=== PATIENT | female | born 1975 | race Caucasian/White ===

== ENCOUNTER 2018-04-05 08:15 | Outpatient (RCR) | payer OTHER | END 2018-05-31 | disposition home or self-care (01) | LOC: MKS.ESL.PT | DX: M25.562 Pain in left knee (principal); M25.511 Pain in right shoulder | CPT/HCPCS: G0283-GP ==

== ENCOUNTER → 2018-07-12 | Outpatient (CLI) | payer BC | LOC: MC.RAD 08:54 | DX: Z12.31 Encounter for screening mammogram for malignant neoplasm of breast (principal) ==

== ENCOUNTER → 2018-11-17 | Outpatient (CLI) | payer BC | LOC: COL.RAD 13:47 | DX: G43.009 Migraine without aura, not intractable, without status migrainosus (principal); R68.89 Other general symptoms and signs; H47.10 Unspecified papilledema; D64.9 Anemia, unspecified | CPT/HCPCS: A9585 ==

== ENCOUNTER → 2018-12-16 | Outpatient (CLI) | payer BC | LOC: COL.CARD 10:00 | DX: G43.009 Migraine without aura, not intractable, without status migrainosus (principal); H47.10 Unspecified papilledema; D64.9 Anemia, unspecified; R41.840 Attention and concentration deficit ==

== ENCOUNTER → 2019-02-12 | Outpatient (CLI) | payer BC ==
[2019-02-12 13:09] LABS: BASO # 0.1 (0.0-0.2); BASO % 0.5 % (0.0-2.0); EOS # 0.1 (0.0-0.7); EOS % 0.7 % (0-4.0); GRAN # 5.8 (1.4-6.5); GRAN % 63.5 % (42.2-75.2); HEMATOCRIT 40.1 % (37.0-47.0); LYMPH # 2.6 (1.2-3.4); MEAN CELL VOLUME 96 fl (80.0-100.0); MEAN CORPUSCULAR HEMOGLOBIN 31 pg (27.0-31.0); MEAN CORPUSCULAR HGB CONC 32 g/dl (33.0-37.0); MEAN PLATELET VOLUME 11.2 fl (7.4-10.4); MONO # 0.7 (0.1-0.6); MONO % 7.1 % (1.7-9.3); PLATELET COUNT 223 K/mm3 (130-400); RED BLOOD COUNT 4.18 M/mm3 (4.10-5.30); REDCELL DISTRIBUTION WIDTH-CV 12.5 % (11.5-14.5)
[2019-02-12 13:27] LABS: ALBUMIN 3.9 gm/dL (3.5-5.0); BILIRUBIN,TOTAL 0.5 mg/dL (0.0-1.0); C-REACTIVE PROTEIN 1.8 mg/dL (0.0-0.9); CREATININE, serum 0.78 (0.52-1.25); POTASSIUM 4.2 mmol/L (3.4-5.0); TOTAL PROTEIN 6.9 gm/dL (6.4-8.2)
[2019-02-12 13:37] LABS: ERYTHROCYTE SEDIMENTATION RATE 6 mm/hr (0-20)
== END ==
LOC: COL.LAB 12:41
PROVIDERS: Physician Assistant
DX: R10.9 Unspecified abdominal pain (principal)

== ENCOUNTER → 2019-02-20 | Outpatient (CLI) | payer BC | LOC: COL.RAD 02-14 13:00 | DX: R10.9 Unspecified abdominal pain (principal); Z90.49 Acquired absence of other specified parts of digestive tract; Z87.2 Personal history of diseases of the skin and subcutaneous tissue | CPT/HCPCS: Q9967 ==

== ENCOUNTER → 2019-07-25 | Outpatient (CLI) | payer BC | LOC: MC.RAD 08:00 | DX: Z12.31 Encounter for screening mammogram for malignant neoplasm of breast (principal) ==

== ENCOUNTER 2020-02-01 08:59 | Emergency (ER) | payer BC ==
[~2020-02-01] VITALS: Ht 167.6 cm; Wt 106.8 kg
[2020-02-01 09:04] VITALS: TEMP 97.9
[2020-02-01] MEDS ORDERED: CELEBREX 200MG200 MG PO (09:26)
[2020-02-01] MEDS ORDERED: FERROUS FUMARA324 MG PO (09:26)
[2020-02-01] MEDS ORDERED: GINGER500 MG PO (09:27)
[2020-02-01] MEDS ORDERED: MAG-OX 400400 MG/TAB PO (09:27)
[2020-02-01] MEDS ORDERED: PROTONIX 40MG T40 MG PO (09:28)
[2020-02-01] MEDS ORDERED: SINGULAIR 110 MG/TAB PO (09:28)
[2020-02-01] MEDS ORDERED: CYMBALTA 60MG60 MG PO (09:29)
[2020-02-01] MEDS ORDERED: TOPAMAX50 MG PO (09:30)
[2020-02-01] MEDS ORDERED: TURMERIC500 MG PO (09:30)
[2020-02-01] MEDS ORDERED: VALTREX 50500 MG/TAB PO (09:31)
[2020-02-01] MEDS ORDERED: DESYREL 50MG50 MG PO (09:31)
[2020-02-01] MEDS ORDERED: ZYRTEC 10MG10 MG PO (09:32)
[2020-02-01] MEDS ORDERED: VITAMIN C500 MG PO (09:32)
[2020-02-01] MEDS ORDERED: ATARAX 25MG25 MG/TAB PO (09:33)
[2020-02-01 10:14] LABS: COLLECTION METHOD CLEAN CATCH
[2020-02-01 10:31] LABS: BASO # 0.1 (0.0-0.2); BASO % 0.6 % (0.0-2.0); EOS # 0.2 (0.0-0.7); EOS % 1.9 % (0-4.0); GRAN # 5.1 (1.4-6.5); GRAN % 64.2 % (42.2-75.2); HEMATOCRIT 41.9 % (37.0-47.0); HEMOGLOBIN 13.8 g/dl (12.5-16.0); LYMPH # 2.1 (1.2-3.4); LYMPH % 25.9 % (20.0-51.0); MEAN CELL VOLUME 94 fl (80.0-100.0); MEAN CORPUSCULAR HEMOGLOBIN 31 pg (27.0-31.0); MEAN CORPUSCULAR HGB CONC 33 g/dl (33.0-37.0); MEAN PLATELET VOLUME 11.1 fl (7.4-10.4); MONO # 0.6 (0.1-0.6); PLATELET COUNT 238 K/mm3 (130-400); RED BLOOD COUNT 4.45 M/mm3 (4.10-5.30); REDCELL DISTRIBUTION WIDTH-CV 11.8 % (11.5-14.5)
[2020-02-01 10:34] LABS: PH 7 (5-8); SQUAMOUS EPITHELIAL None Seen /hpf; URINE APPEARANCE Clear; URINE BACTERIA None Seen /hpf; URINE BILIRUBIN Negative (NEGATIVE); URINE BLOOD 1+ (NEGATIVE); URINE COLOR Straw; URINE GLUCOSE Negative (NEGATIVE); URINE KETONE Negative (NEGATIVE); URINE LEUKOCYTE ESTERASE Negative (NEGATIVE); URINE NITRATE Negative (NEGATIVE); URINE PROTEIN(semi-quant) Negative (NEGATIVE); URINE RBC None Seen /hpf; URINE UROBILINOGEN Negative (NEGATIVE)
[2020-02-01 10:36] LABS: ALBUMIN 4.4 gm/dL (3.5-5.0); BILIRUBIN,TOTAL 0.6 mg/dL (0.0-1.0); C-REACTIVE PROTEIN 1.2 mg/dL (0.0-0.9); CALCIUM 9.7 mg/dL (8.4-10.2); CREATININE, serum 0.82 (0.52-1.25); POTASSIUM 4.1 mmol/L (3.4-5.0); TOTAL PROTEIN 7.8 gm/dL (6.4-8.2)
[2020-02-01] MEDS ORDERED: BACTRIM DS 8001 TAB PO (11:43)
[2020-02-01 11:58] VITALS: BP 102/68; PULSE 72
== END 2020-02-01 11:58 | disposition home or self-care (01) ==
LOC: COL.ER 08:59
PROVIDERS: Nurse Practitioner Primary Care
DX: R10.32 Left lower quadrant pain (principal); R31.9 Hematuria, unspecified; M79.7 Fibromyalgia
CPT/HCPCS: J1885; J2405; J7030; Q9967

== ENCOUNTER → 2020-07-29 | Outpatient (CLI) | payer BC ==
[~2020-07-29] MED LIST: ATARAX 25MG25 MG/TAB PO; BACTRIM DS 8001 TAB PO; CELEBREX 200MG200 MG PO; CYMBALTA 60MG60 MG PO; DESYREL 50MG50 MG PO; FERROUS FUMARA324 MG PO; GINGER500 MG PO; MAG-OX 400400 MG/TAB PO; PROTONIX 40MG T40 MG PO; SINGULAIR 110 MG/TAB PO; TOPAMAX50 MG PO; TURMERIC500 MG PO; VALTREX 50500 MG/TAB PO; VITAMIN C500 MG PO; ZYRTEC 10MG10 MG PO
== END ==
LOC: MC.RAD 07:41
DX: Z12.31 Encounter for screening mammogram for malignant neoplasm of breast (principal)

== ENCOUNTER 2020-09-29 21:52 | Emergency (ER) | payer BC ==
[~2020-09-29] VITALS: Ht 167.6 cm; Wt 109.1 kg
[2020-09-29 21:56] VITALS: TEMP 98.1
[2020-09-29 22:22] LABS: BASO # 0.1 (0.0-0.2); BASO % 0.6 % (0.0-2.0); EOS # 0.2 (0.0-0.7); EOS % 2.1 % (0-4.0); GRAN # 5.7 (1.4-6.5); GRAN % 70.9 % (42.2-75.2); HEMATOCRIT 37.9 % (37.0-47.0); HEMOGLOBIN 12.6 g/dl (12.5-16.0); LYMPH # 1.5 (1.2-3.4); LYMPH % 19.1 % (20.0-51.0); MEAN CELL VOLUME 92 fl (80.0-100.0); MEAN CORPUSCULAR HEMOGLOBIN 31 pg (27.0-31.0); MEAN CORPUSCULAR HGB CONC 33 g/dl (33.0-37.0); MEAN PLATELET VOLUME 10.6 fl (7.4-10.4); MONO # 0.6 (0.1-0.6); MONO % 7.1 % (1.7-9.3); PLATELET COUNT 235 K/mm3 (130-400); RED BLOOD COUNT 4.11 M/mm3 (4.10-5.30); REDCELL DISTRIBUTION WIDTH-CV 12.2 % (11.5-14.5)
[2020-09-29 22:30] LABS: INR 1.1 (0.8-3.0); PROTHROMBIN TIME 12.4 SECONDS (9.7-12.8)
[2020-09-29 22:33] LABS: ALANINE AMINOTRANSFERASE 17 U/L (4-34); ALBUMIN 3.9 gm/dL (3.5-5.0); ALKALINE PHOSPHATASE 114 U/L (50-136); ANION GAP 6 mmol/L (7-16); AST,SGOT 28 U/L (15-37); BILIRUBIN,TOTAL 0.2 mg/dL (0.0-1.0); BLOOD UREA NITROGEN 18 mg/dL (7-17); CALCIUM 9.2 mg/dL (8.4-10.2); CARBON DIOXIDE 23 mmol/L (22-30); CHLORIDE 106 mmol/L (98-107); CREATININE, serum 0.78 (0.52-1.25); GLUCOSE 116 mg/dL (74-106); PARTIAL THROMBOPLASTIN TIME 34.4 SECONDS (26.0-37.0); POTASSIUM 3.3 mmol/L (3.4-5.0); SODIUM 135 mmol/L (137-145); TOTAL PROTEIN 7.1 gm/dL (6.4-8.2)
[2020-09-29 22:49] LABS: TROPONIN-I < 0.012 ng/mL (0.000-0.035)
[2020-09-30 00:22] VITALS: BP 116/75; PULSE 83
== END 2020-09-30 00:22 | disposition home or self-care (01) ==
LOC: COL.ER 21:52
PROVIDERS: Family Medicine
DX: I49.3 Ventricular premature depolarization (principal); Z88.1 Allergy status to other antibiotic agents; Z88.5 Allergy status to narcotic agent

== ENCOUNTER → 2020-10-15 | Outpatient (CLI) | payer BC | LOC: COL.RAD 08:28 | DX: M75.41 Impingement syndrome of right shoulder (principal); M75.01 Adhesive capsulitis of right shoulder; S46.011D Strain of muscle(s) and tendon(s) of the rotator cuff of right shoulder, subsequent encounter | CPT/HCPCS: A9585; Q9967 ==

== ENCOUNTER → 2021-08-26 | Outpatient (CLI) | payer BC | LOC: MC.RAD 07-31 07:45 | DX: Z12.31 Encounter for screening mammogram for malignant neoplasm of breast (principal) ==

== ENCOUNTER → 2022-08-27 | Outpatient (CLI) | payer BC | LOC: MC.RAD 07:12 | DX: Z12.31 Encounter for screening mammogram for malignant neoplasm of breast (principal) ==

== ENCOUNTER → 2023-08-31 | Outpatient (CLI) | payer BC | LOC: MC.RAD 07:21 | DX: Z12.31 Encounter for screening mammogram for malignant neoplasm of breast (principal) ==